=== PATIENT | male | born 1975 | race Hispanic/Latino ===

== ENCOUNTER 2020-08-01 22:16 | Emergency (ER) | payer SELFPAY ==
[2020-08-01] MEDS ORDERED: ACETAMINOPHEN EXTRA STRENGTH 500 MG TABLET ONE (22:42)
== END 2020-08-02 00:24 | disposition home or self-care (01) ==
LOC: EDH 22:16
DX: U07.1 COVID-19 (principal)
CPT/HCPCS: 71045; 87426

== ENCOUNTER → 2022-11-05 | Outpatient (CLI) | payer OTHER, SELFPAY ==
[~2022-11-05] MED LIST: ACYC400T20 PO; LEVO-70 PO; LISI10TA24 PO; METO50TA18 PO; METO5TAB2 PO; METR-172 PO; PANT40TA55 PO
[2022-11-05 16:04] LABS: EOSINOPHILS % (AUTO) 2.1 % (0.0-8.0); HEMATOCRIT 36.3 % (42-54); LYMPHOCYTES % (AUTO) 23.1 % (21.0-51.0); MEAN CORPUSCULAR HEMOGLOBIN 29.5 pg (27.0-33.0); MEAN CORPUSCULAR HGB CONC 31.1 g/dL (32.0-36.0); MEAN CORPUSCULAR VOLUME 94.8 fL (79-99); MONOCYTES % (AUTO) 8.1 % (3.0-13.0); NEUTROPHILS % (AUTO) 55.6 % (40.0-77.0); RED BLOOD CELL COUNT(AUTO) 3.83 MIL/uL (4.50-6.20); RED CELL DISTRIBUTION WIDTH 14.4 % (11.0-15.5); WHITE BLOOD COUNT (AUTO) 10.9 K/uL (4.8-10.8)
[2022-11-05 16:05] LABS: PLATELET COUNT (AUTO) 730 K/uL (130-400)
[2022-11-05 16:20] LABS: CREATININE 0.9 mg/dL (0.5-1.5); POTASSIUM 4.7 mmol/L (3.5-5.1); TOTAL PROTEIN, SERUM 7.9 g/dL (6.0-8.3)
== END | disposition home or self-care (01) ==
LOC: LAB 14:59
PROVIDERS: ATTEND Internal Medicine
DX: K85.91 Acute pancreatitis with uninfected necrosis, unspecified (principal)
CPT/HCPCS: 36415; 80053; 85025

== ENCOUNTER 2022-11-12 08:23 | Inpatient (IN) | payer OTHER, SELFPAY ==
[~2022-11-12] VITALS: Ht 170.2 cm; Wt 62.2 kg
[2022-11-12 09:11] LABS: BASOPHILS % (AUTO) 0.8 % (0.0-5.0); EOSINOPHILS % (AUTO) 1.4 % (0.0-8.0); HEMATOCRIT 35.7 % (42-54); LYMPHOCYTES % (AUTO) 21.1 % (21.0-51.0); MEAN CORPUSCULAR HEMOGLOBIN 30.1 pg (27.0-33.0); MEAN CORPUSCULAR HGB CONC 31.7 g/dL (32.0-36.0); MEAN CORPUSCULAR VOLUME 94.9 fL (79-99); MONOCYTES % (AUTO) 7.8 % (3.0-13.0); NEUTROPHILS % (AUTO) 66.5 % (40.0-77.0); PLATELET COUNT (AUTO) 397 K/uL (130-400); RED BLOOD CELL COUNT(AUTO) 3.76 MIL/uL (4.50-6.20); RED CELL DISTRIBUTION WIDTH 14.9 % (11.0-15.5); WHITE BLOOD COUNT (AUTO) 9.3 K/uL (4.8-10.8)
[2022-11-12 09:20] LABS: APPEARANCE,URINE CLEAR (CLEAR); BILIRUBIN,URINE NEGATIVE (NEGATIVE); COLOR,URINE YELLOW (YELLOW); GLUCOSE, URINE (UA) NEGATIVE (NEGATIVE); KETONES,URINE 5 mg/dL (NEGATIVE); LEUKOCYTE ESTERASE ,URINE 25 Leu/uL (NEGATIVE); NITRATE,URINE NEGATIVE (NEGATIVE); OCCULT BLOOD,URINE NEGATIVE (NEGATIVE); PROTEIN,URINE NEGATIVE (NEGATIVE); UROBILINOGEN,URINE 0.2 mg/dL (0.2-1.0)
[2022-11-12 09:21] LABS: CREATININE 0.8 mg/dL (0.5-1.5); POTASSIUM 4.2 mmol/L (3.5-5.1)
[2022-11-12 09:25] LABS: ALBUMIN 3.1 g/dL (3.5-5.0); TOTAL PROTEIN, SERUM 7.4 g/dL (6.0-8.3)
[2022-11-12 09:51] LABS: MUCUS,URINE RARE LPF (None Seen); RBC,URINE 0-1 /HPF (0-1)
[2022-11-12] MEDS ORDERED: IOHEXOL 350 MG/ML 100ML INFUS..BTL IV ONE (10:54)
[2022-11-12] MEDS ORDERED: ONDANSETRON 4MG INJ IV PRN (15:00)
[2022-11-12] MEDS ORDERED: CEFTRIAXONE 1G VIAL 1 GM in 0.9%NACL 50ML 50 ML IV SCH (15:00)
[2022-11-12] MEDS: CEFTRIAXONE 1G VIAL IVPB SCH (15:49)
[2022-11-12] MEDS: 0.9%NACL 1000ML 1,000 ML IV SCH (15:50)
[2022-11-12 18:58] VITALS: BP 128/92
[2022-11-12 19:50] VITALS: BP 121/88
[2022-11-12] MEDS: FAMOTIDINE 20MG VIAL IV SCH (21:17)
[2022-11-12] MEDS: KETOROLAC 15MG/ML VIAL (15MG/ML) IV PRN (21:20)
[2022-11-12 23:30] VITALS: BP 124/82
[2022-11-13] VITALS (23 sets, daily range): BP systolic 114–158; BP diastolic 78–105
[2022-11-13 05:02] LABS: MEAN CORPUSCULAR HEMOGLOBIN 30.1 pg (27.0-33.0); MEAN CORPUSCULAR HGB CONC 32.2 g/dL (32.0-36.0); MEAN CORPUSCULAR VOLUME 93.6 fL (79-99); RED BLOOD CELL COUNT(AUTO) 3.42 MIL/uL (4.50-6.20); RED CELL DISTRIBUTION WIDTH 14.9 % (11.0-15.5); WHITE BLOOD COUNT (AUTO) 8.2 K/uL (4.8-10.8)
[2022-11-13 05:14] LABS: INR 0.95 (0.85-1.15); PROTHROMBIN TIME 11.1 SEC (9.6-11.6)
[2022-11-13 05:15] LABS: PARTIAL THROMBOPLASTIN TIME 32.9 SEC (26.3-35.5)
[2022-11-13 05:23] LABS: ALBUMIN 2.6 g/dL (3.5-5.0); CREATININE 0.9 mg/dL (0.5-1.5); POTASSIUM 4.3 mmol/L (3.5-5.1); TOTAL PROTEIN, SERUM 6.3 g/dL (6.0-8.3)
[2022-11-13] MEDS ORDERED: LIDOCAINE PF 100MG/5ML (2%) SYRINGE 5ML ONE (07:40)
[2022-11-13] MEDS ORDERED: PROPOFOL 10 MG/ML 20ML VIAL IV ONE ×2 (07:40→07:47)
[2022-11-13] MEDS: 0.9%NACL 1000ML 1,000 ML IV SCH ×2 (08:51→17:40)
[2022-11-13] MEDS: FAMOTIDINE 20MG VIAL IV SCH ×2 (08:52→20:34)
[2022-11-13] MEDS: CEFTRIAXONE 1G VIAL IVPB SCH (16:45)
[2022-11-13] MEDS ORDERED: DICY-20 PO (17:08)
[2022-11-13] MEDS ORDERED: ONDA4TAB10 PO (17:08)
[2022-11-13] MEDS ORDERED: LISI20TA24 PO (17:08)
[2022-11-13] MEDS: KETOROLAC 15MG/ML VIAL (15MG/ML) IV PRN (19:01)
[2022-11-13] MEDS: METOPROLOL TARTRATE 50 MG TAB PO SCH (20:33)
[2022-11-13] MEDS: DICYCLOMINE HCL 20 MG TAB PO SCH (20:34)
[2022-11-13] MEDS ORDERED: LISINOPRIL 20 MG TABLET PO SCH (21:00)
[2022-11-13] MEDS ORDERED: NON-FORMULARY MEDICATION 1 EACH (Dicyclomine HCl 10 MG) PO SCH (21:00)
[2022-11-14 03:35] VITALS: BP 135/93
[2022-11-14 08:00] VITALS: BP 130/98
[2022-11-14] MEDS: METOPROLOL TARTRATE 50 MG TAB PO SCH (09:12)
[2022-11-14] MEDS: FAMOTIDINE 20MG VIAL IV SCH (09:12)
[2022-11-14] MEDS: DICYCLOMINE HCL 20 MG TAB PO SCH (09:12)
[2022-11-14 11:33] VITALS: BP 127/93
== END 2022-11-14 14:25 | disposition home or self-care (01) | DRG 690 ==
LOC: EDH 08:23 → EDHIP 08:24 → 4BH 18:50
PROVIDERS: ADMIT Hospitalist; ATTEND Hospitalist
PROC: 0DC78ZZ Extirpation of Matter from Stomach, Pylorus, Via Natural or Artificial Opening Endoscopic (ICD-10-PCS; principal; 2022-11-13)
DX: N39.0 Urinary tract infection, site not specified (principal); E11.9 Type 2 diabetes mellitus without complications; K21.9 Gastro-esophageal reflux disease without esophagitis; Z20.822 Contact with and (suspected) exposure to COVID-19; I10 Essential (primary) hypertension; Z82.49 Family history of ischemic heart disease and other diseases of the circulatory system; Z83.3 Family history of diabetes mellitus
CPT/HCPCS: 36415; 43247; 71045; 74177; 80053; 81001; 83690; 84484; 85025; 85027; 85610; 85730; 87635; 93005; A4606; G0378; J0696; J1885; J2001; J2704; J3490; J7030; Q9967

== ENCOUNTER 2022-11-30 23:21 | Emergency (ER) | payer OTHER ==
[~2022-11-30] VITALS: Ht 162.6 cm; Wt 64.5 kg
[~2022-11-30 23:21] MED LIST changes: -ACYC400T20 PO; +DICY-20 PO; -LEVO-70 PO; -LISI10TA24 PO; +LISI20TA24 PO; -METO5TAB2 PO; -METR-172 PO; +ONDA4TAB10 PO
[2022-11-30 23:53] LABS: BASOPHILS % (AUTO) 0.5 % (0.0-5.0); EOSINOPHILS % (AUTO) 1.3 % (0.0-8.0); HEMATOCRIT 37.2 % (42-54); MEAN CORPUSCULAR HEMOGLOBIN 30.4 pg (27.0-33.0); MEAN CORPUSCULAR HGB CONC 32.5 g/dL (32.0-36.0); MEAN CORPUSCULAR VOLUME 93.5 fL (79-99); MONOCYTES % (AUTO) 7.8 % (3.0-13.0); NEUTROPHILS % (AUTO) 70.5 % (40.0-77.0); PLATELET COUNT (AUTO) 361 K/uL (130-400); RED BLOOD CELL COUNT(AUTO) 3.98 MIL/uL (4.50-6.20); RED CELL DISTRIBUTION WIDTH 14.8 % (11.0-15.5); WHITE BLOOD COUNT (AUTO) 11.2 K/uL (4.8-10.8)
[2022-12-01] MEDS ORDERED: HALOPERIDOL INJ 5 MG/ML VIAL IV SCH
[2022-12-01 00:02] LABS: CREATININE 1.2 mg/dL (0.5-1.5); POTASSIUM 3.6 mmol/L (3.5-5.1)
[2022-12-01] MEDS ORDERED: LISI10TA24 PO ×2 (00:08→21:19)
[2022-12-01 00:13] LABS: ALBUMIN 3.4 g/dL (3.5-5.0); TOTAL PROTEIN, SERUM 7.5 g/dL (6.0-8.3)
[2022-12-01] MEDS ORDERED: KETOROLAC 30MG VIAL (30MG/ML) IV ONE (01:30)
[2022-12-01] MEDS ORDERED: IBUP-1493 PO (01:41)
[2022-12-01 01:51] LABS: APPEARANCE,URINE CLOUDY (CLEAR); BILIRUBIN,URINE NEGATIVE (NEGATIVE); COLOR,URINE YELLOW (YELLOW); GLUCOSE, URINE (UA) NEGATIVE (NEGATIVE); KETONES,URINE NEGATIVE (NEGATIVE); LEUKOCYTE ESTERASE ,URINE NEGATIVE Leu/uL (NEGATIVE); NITRATE,URINE NEGATIVE (NEGATIVE); OCCULT BLOOD,URINE NEGATIVE (NEGATIVE); PROTEIN,URINE 20 mg/dL (NEGATIVE); UROBILINOGEN,URINE 0.2 mg/dL (0.2-1.0)
[2022-12-01 01:53] LABS: MUCUS,URINE MANY LPF (None Seen); SQUAMOUS EPITHELIAL CELL,UR RARE /HPF (0-2)
[2022-12-01 02:32] VITALS: BP 162/74; PULSE 78; RESP 16; O2SAT 98
[2022-12-01] MEDS ORDERED: DICY20TA3 PO (21:19)
[2022-12-01] MEDS ORDERED: IBUP-2077 PO (21:19)
[2022-12-01] MEDS ORDERED: ONDA4TAB10 PO (21:19)
[2022-12-01] MEDS ORDERED: METO50TA18 PO (21:19)
== END 2022-12-01 02:39 | disposition home or self-care (01) ==
LOC: EDH 23:21
DX: K80.20 Calculus of gallbladder without cholecystitis without obstruction (principal); I10 Essential (primary) hypertension; E11.9 Type 2 diabetes mellitus without complications; K21.9 Gastro-esophageal reflux disease without esophagitis
CPT/HCPCS: 99285; 96374; 76705; 71045; 82550; 83874; 84484; 80053; 83690; 85025; 83605; 81001; 36415; 93005; 96375; J1630; J1885

== ENCOUNTER 2022-12-01 15:57 | Inpatient (IN) | payer OTHER ==
[~2022-12-01] VITALS: Ht 152.4 cm; Wt 65.3 kg
[~2022-12-01 15:57] MED LIST changes: +IBUP-1493 PO; +LISI10TA24 PO
[2022-12-01 20:01] LABS: BASOPHILS # (AUTO) 0.04 K/uL (0.00-0.20); BASOPHILS % (AUTO) 0.3 % (0.0-5.0); EOSINOPHILS # (AUTO) 0.03 K/uL (0.00-0.70); EOSINOPHILS % (AUTO) 0.2 % (0.0-8.0); HEMATOCRIT 37.5 % (42-54); IMMATURE GRANULOCYTE ABSOLUTE 0.11 K/uL (0-1); LYMPHOCYTES # (AUTO) 1.1 K/uL (1.0-4.8); LYMPHOCYTES % (AUTO) 8.1 % (21.0-51.0); MEAN CORPUSCULAR HEMOGLOBIN 30.2 pg (27.0-33.0); MEAN CORPUSCULAR HGB CONC 33.1 g/dL (32.0-36.0); MEAN CORPUSCULAR VOLUME 91.2 fL (79-99); MONOCYTES # (AUTO) 1.1 K/uL (0.1-1.0); NEUTROPHILS # (AUTO) 11.4 K/uL (1.8-7.7); NEUTROPHILS % (AUTO) 82.6 % (40.0-77.0); PLATELET COUNT (AUTO) 321 K/uL (130-400); RED BLOOD CELL COUNT(AUTO) 4.11 MIL/uL (4.50-6.20); RED CELL DISTRIBUTION WIDTH 14.5 % (11.0-15.5); WHITE BLOOD COUNT (AUTO) 13.8 K/uL (4.8-10.8)
[2022-12-01 20:12] LABS: CREATININE 0.8 mg/dL (0.5-1.5); POTASSIUM 3.7 mmol/L (3.5-5.1)
[2022-12-01 20:15] LABS: ALBUMIN 3.1 g/dL (3.5-5.0); TOTAL PROTEIN, SERUM 7.2 g/dL (6.0-8.3)
[2022-12-01 20:43] LABS: APPEARANCE,URINE CLEAR (CLEAR); BILIRUBIN,URINE NEGATIVE (NEGATIVE); COLOR,URINE LIGHT-YELLOW (YELLOW); GLUCOSE, URINE (UA) NEGATIVE (NEGATIVE); KETONES,URINE NEGATIVE (NEGATIVE); LEUKOCYTE ESTERASE ,URINE NEGATIVE Leu/uL (NEGATIVE); NITRATE,URINE NEGATIVE (NEGATIVE); OCCULT BLOOD,URINE NEGATIVE (NEGATIVE); PROTEIN,URINE NEGATIVE (NEGATIVE); UROBILINOGEN,URINE 0.2 mg/dL (0.2-1.0)
[2022-12-01 20:44] LABS: ADD UA MICROSCOPIC YES
[2022-12-01 20:48] LABS: BACTERIA,URINE RARE /HPF (None Seen); MUCUS,URINE RARE LPF (None Seen); WBC,URINE 0-1 /HPF (0-1)
[2022-12-01] MEDS ORDERED: METO50TA18 PO (21:19)
[2022-12-01] MEDS ORDERED: ONDA4TAB10 PO (21:19)
[2022-12-01] MEDS ORDERED: LISI10TA24 PO (21:19)
[2022-12-01] MEDS ORDERED: DICY20TA3 PO (21:19)
[2022-12-01] MEDS ORDERED: IBUP-2077 PO (21:19)
[2022-12-01] MEDS ORDERED: ONDANSETRON 4MG INJ IV PRN (21:30)
[2022-12-01] MEDS ORDERED: 0.9%NACL 50ML IV SCH (21:30)
[2022-12-01] MEDS ORDERED: MORPHINE 4 MG SYG IV PRN (21:30)
[2022-12-01] MEDS ORDERED: ZOSYN 3.375GM +NS 50ML IVPB SCH (21:30)
[2022-12-01] MEDS ORDERED: ZOSYN 3.375GM+NS 50ML 50 ML IVPB ONE (21:43)
[2022-12-01] MEDS: LACTATED RINGERS 1000ML 1,000 ML IV SCH (21:56)
[2022-12-01] MEDS ORDERED: LABETALOL 20MG VIAL IV ONE (22:00)
[2022-12-01 23:16] LABS: SARS-CoV-2, RNA, NAAT NEGATIVE SARS CoV-2 (NEGATIVE)
[2022-12-02] VITALS (9 sets, daily range): BP systolic 127–146; BP diastolic 94–104; PULSE 91–137; RESP 18–20; TEMP 98.5; O2SAT 98
[2022-12-02] MEDS: LABETALOL 20MG SYG IV PRN (04:32)
[2022-12-02] MEDS: ACETAMINOPHEN 325 MG TAB PO PRN ×3 (04:35→20:54)
[2022-12-02] MEDS: ZOSYN 3.375GM+NS 50ML 50 ML IVPB SCH ×3 (04:40→20:49)
[2022-12-02 05:50] LABS: BASOPHILS # (AUTO) 0.04 K/uL (0.00-0.20); BASOPHILS % (AUTO) 0.4 % (0.0-5.0); EOSINOPHILS # (AUTO) 0.05 K/uL (0.00-0.70); EOSINOPHILS % (AUTO) 0.4 % (0.0-8.0); HEMATOCRIT 36.6 % (42-54); LYMPHOCYTES # (AUTO) 0.7 K/uL (1.0-4.8); LYMPHOCYTES % (AUTO) 6.1 % (21.0-51.0); MEAN CORPUSCULAR HEMOGLOBIN 30.3 pg (27.0-33.0); MEAN CORPUSCULAR HGB CONC 33.1 g/dL (32.0-36.0); MEAN CORPUSCULAR VOLUME 91.7 fL (79-99); MONOCYTES # (AUTO) 0.8 K/uL (0.1-1.0); MONOCYTES % (AUTO) 6.7 % (3.0-13.0); NEUTROPHILS # (AUTO) 9.8 K/uL (1.8-7.7); NEUTROPHILS % (AUTO) 85.5 % (40.0-77.0); PLATELET COUNT (AUTO) 319 K/uL (130-400); RED BLOOD CELL COUNT(AUTO) 3.99 MIL/uL (4.50-6.20); RED CELL DISTRIBUTION WIDTH 14.5 % (11.0-15.5); WHITE BLOOD COUNT (AUTO) 11.4 K/uL (4.8-10.8)
[2022-12-02 06:02] LABS: INR 1.03 (0.85-1.15); PROTHROMBIN TIME 11.9 SEC (9.6-11.6)
[2022-12-02 06:03] LABS: PARTIAL THROMBOPLASTIN TIME 33.7 SEC (26.3-35.5)
[2022-12-02 06:23] LABS: CREATININE 0.9 mg/dL (0.5-1.5); MAGNESIUM 1.4 mg/dL (1.80-2.40); PHOSPHORUS 3.6 mg/dL (2.5-4.9); POTASSIUM 3.8 mmol/L (3.5-5.1)
[2022-12-02] MEDS: FAMOTIDINE 20MG VIAL IV SCH ×2 (08:46→20:49)
[2022-12-02] MEDS: LACTATED RINGERS 1000ML 1,000 ML IV SCH (10:50)
[2022-12-02] MEDS ORDERED: IBUPROFEN 600 MG TABLET PO ONE (11:30)
[2022-12-02] MEDS ORDERED: MAGNESIUM 2GM PREMIX 50ML 50 ML IV PRN (13:00)
[2022-12-02] MEDS ORDERED: POTASSIUM CHLORIDE 20MEQ/100ML 100 ML IV PRN (13:00)
[2022-12-02 14:02] LABS: CRP QUANTITATIVE 151.8 mg/L (0.00-9.0)
[2022-12-03] VITALS (7 sets, daily range): BP systolic 125–162; BP diastolic 6–100; PULSE 57–129; RESP 17–20; O2SAT 96–100
[2022-12-03] MEDS: ZOSYN 3.375GM+NS 50ML 50 ML IVPB SCH ×3 (04:46→20:01)
[2022-12-03] MEDS: LACTATED RINGERS 1000ML 1,000 ML IV SCH ×2 (04:47→13:30)
[2022-12-03 05:18] LABS: BASOPHILS # (AUTO) 0.04 K/uL (0.00-0.20); BASOPHILS % (AUTO) 0.3 % (0.0-5.0); EOSINOPHILS # (AUTO) 0.05 K/uL (0.00-0.70); EOSINOPHILS % (AUTO) 0.4 % (0.0-8.0); HEMATOCRIT 38.8 % (42-54); IMMATURE GRANULOCYTE ABSOLUTE 0.12 K/uL (0-1); LYMPHOCYTES # (AUTO) 0.8 K/uL (1.0-4.8); LYMPHOCYTES % (AUTO) 6.8 % (21.0-51.0); MEAN CORPUSCULAR HEMOGLOBIN 30.2 pg (27.0-33.0); MEAN CORPUSCULAR HGB CONC 32.7 g/dL (32.0-36.0); MEAN CORPUSCULAR VOLUME 92.4 fL (79-99); MONOCYTES # (AUTO) 0.7 K/uL (0.1-1.0); NEUTROPHILS # (AUTO) 10.1 K/uL (1.8-7.7); NEUTROPHILS % (AUTO) 85.5 % (40.0-77.0); PLATELET COUNT (AUTO) 281 K/uL (130-400); RED CELL DISTRIBUTION WIDTH 14.6 % (11.0-15.5); WHITE BLOOD COUNT (AUTO) 11.8 K/uL (4.8-10.8)
[2022-12-03 06:05] LABS: ALBUMIN 2.8 g/dL (3.5-5.0); BILIRUBIN,TOTAL 1.3 mg/dL (0.2-1.0); MAGNESIUM 1.6 mg/dL (1.80-2.40); POTASSIUM 3.8 mmol/L (3.5-5.1); TOTAL PROTEIN, SERUM 7.4 g/dL (6.0-8.3)
[2022-12-03] MEDS: FAMOTIDINE 20MG VIAL IV SCH ×2 (08:50→20:01)
[2022-12-03] MEDS: LABETALOL 20MG SYG IV PRN (08:59)
[2022-12-03] MEDS: ACETAMINOPHEN 325 MG TAB PO PRN (10:59)
[2022-12-03] MEDS ORDERED: METOPROLOL TARTRATE 25 MG TAB PO ONE (18:00)
[2022-12-04] VITALS (29 sets, daily range): BP systolic 116–165; BP diastolic 74–123; PULSE 84–106; RESP 13–20; O2SAT 97
[2022-12-04 05:07] LABS: BASOPHILS # (AUTO) 0.04 K/uL (0.00-0.20); BASOPHILS % (AUTO) 0.6 % (0.0-5.0); EOSINOPHILS % (AUTO) 4.4 % (0.0-8.0); HEMATOCRIT 35.4 % (42-54); IMMATURE GRANULOCYTE ABSOLUTE 0.07 K/uL (0-1); LYMPHOCYTES # (AUTO) 1.4 K/uL (1.0-4.8); LYMPHOCYTES % (AUTO) 20.2 % (21.0-51.0); MEAN CORPUSCULAR HEMOGLOBIN 30.3 pg (27.0-33.0); MEAN CORPUSCULAR HGB CONC 33.1 g/dL (32.0-36.0); MEAN CORPUSCULAR VOLUME 91.7 fL (79-99); MONOCYTES % (AUTO) 14.5 % (3.0-13.0); NEUTROPHILS # (AUTO) 4.1 K/uL (1.8-7.7); NEUTROPHILS % (AUTO) 59.3 % (40.0-77.0); PLATELET COUNT (AUTO) 283 K/uL (130-400); RED BLOOD CELL COUNT(AUTO) 3.86 MIL/uL (4.50-6.20); RED CELL DISTRIBUTION WIDTH 14.4 % (11.0-15.5); WHITE BLOOD COUNT (AUTO) 6.9 K/uL (4.8-10.8)
[2022-12-04] MEDS: ZOSYN 3.375GM+NS 50ML 50 ML IVPB SCH ×3 (05:08→20:33)
[2022-12-04] MEDS: LACTATED RINGERS 1000ML 1,000 ML IV SCH ×3 (05:09→20:34)
[2022-12-04 05:22] LABS: ALBUMIN 2.5 g/dL (3.5-5.0); BILIRUBIN,TOTAL 0.4 mg/dL (0.2-1.0); CREATININE 1.1 mg/dL (0.5-1.5); POTASSIUM 3.5 mmol/L (3.5-5.1); TOTAL PROTEIN, SERUM 6.7 g/dL (6.0-8.3)
[2022-12-04] MEDS ORDERED: HYDRALAZINE 20MG/ML VIAL IV ONE (09:00)
[2022-12-04] MEDS: FAMOTIDINE 20MG VIAL IV SCH ×2 (09:05→20:34)
[2022-12-04] MEDS ORDERED: SUCCINYLCHOLINE CHLORIDE 20 MG/ML 10 ML VIAL ONE (09:55)
[2022-12-04] MEDS ORDERED: LIDOCAINE PF 100MG/5ML (2%) SYRINGE 5ML ONE (09:55)
[2022-12-04] MEDS ORDERED: FENTANYL CITRATE PF 50 MCG/1 ML 2ML VIAL ONE ×3 (09:56→11:26)
[2022-12-04] MEDS ORDERED: MIDAZOLAM HCL 1 MG/ML 2ML VIAL ONE (09:56)
[2022-12-04] MEDS ORDERED: PROPOFOL 10 MG/ML 20ML VIAL IV ONE (09:56)
[2022-12-04] MEDS ORDERED: ROCURONIUM 10MG/1ML SYR 10 MG/ML ML ONE (09:56)
[2022-12-04] MEDS ORDERED: LIDOCAINE HCL 1% 10 ML VIAL ONE (10:32)
[2022-12-04] MEDS ORDERED: BUPIVACAINE/PF 0.25% 30ML VIAL IJ ONE (10:32)
[2022-12-04] MEDS ORDERED: ONDANSETRON 4MG INJ ONE (11:40)
[2022-12-04] MEDS ORDERED: KETOROLAC 30MG VIAL (30MG/ML) ONE (11:40)
[2022-12-04] MEDS ORDERED: SUGAMMADEX SODIUM 200 MG/2 ML VIAL IV ONE (11:41)
[2022-12-04] MEDS ORDERED: LABETALOL 20MG SYG IV ONE (12:23)
[2022-12-04] MEDS: LABETALOL 20MG SYG IV PRN (15:05)
[2022-12-04] MEDS ORDERED: HYDRALAZINE 20MG/ML VIAL IM ONE (16:30)
[2022-12-04] MEDS: MORPHINE 2 MG SYG IV PRN (16:31)
[2022-12-04] MEDS: METOPROLOL TARTRATE 50 MG TAB PO SCH (20:34)
[2022-12-05] VITALS: BP 143/94; PULSE 76; RESP 18
[2022-12-05] MEDS: MORPHINE 2 MG SYG IV PRN ×2 (01:13→11:18)
[2022-12-05 04:00] VITALS: BP 144/96; PULSE 80; RESP 19
[2022-12-05 04:52] LABS: BASOPHILS # (AUTO) 0.02 K/uL (0.00-0.20); BASOPHILS % (AUTO) 0.2 % (0.0-5.0); EOSINOPHILS # (AUTO) 0.02 K/uL (0.00-0.70); EOSINOPHILS % (AUTO) 0.2 % (0.0-8.0); HEMATOCRIT 36.9 % (42-54); IMMATURE GRANULOCYTE ABSOLUTE 0.09 K/uL (0-1); LYMPHOCYTES % (AUTO) 11.4 % (21.0-51.0); MEAN CORPUSCULAR HEMOGLOBIN 30.1 pg (27.0-33.0); MEAN CORPUSCULAR HGB CONC 33.1 g/dL (32.0-36.0); MEAN CORPUSCULAR VOLUME 91.1 fL (79-99); MONOCYTES # (AUTO) 0.9 K/uL (0.1-1.0); MONOCYTES % (AUTO) 9.8 % (3.0-13.0); NEUTROPHILS # (AUTO) 6.9 K/uL (1.8-7.7); NEUTROPHILS % (AUTO) 77.4 % (40.0-77.0); PLATELET COUNT (AUTO) 415 K/uL (130-400); RED BLOOD CELL COUNT(AUTO) 4.05 MIL/uL (4.50-6.20); RED CELL DISTRIBUTION WIDTH 14.6 % (11.0-15.5); WHITE BLOOD COUNT (AUTO) 8.9 K/uL (4.8-10.8)
[2022-12-05] MEDS: ZOSYN 3.375GM+NS 50ML 50 ML IVPB SCH (05:03)
[2022-12-05 05:11] LABS: ALBUMIN 2.8 g/dL (3.5-5.0); BILIRUBIN,DIRECT 0.1 mg/dL (0.0-0.3); BILIRUBIN,TOTAL 0.4 mg/dL (0.2-1.0); CREATININE 0.9 mg/dL (0.5-1.5); POTASSIUM 3.9 mmol/L (3.5-5.1); TOTAL PROTEIN, SERUM 7.2 g/dL (6.0-8.3)
[2022-12-05 08:00] VITALS: BP 148/101; PULSE 85; RESP 18; O2SAT 99
[2022-12-05] MEDS: FAMOTIDINE 20MG VIAL IV SCH (08:08)
[2022-12-05] MEDS: METOPROLOL TARTRATE 50 MG TAB PO SCH (08:08)
[2022-12-05] MEDS ORDERED: LISINOPRIL 10 MG TABLET PO SCH (09:00)
[2022-12-05 11:00] VITALS: PULSE 79; RESP 18
== END 2022-12-05 13:35 | disposition home or self-care (01) | DRG 854 ==
LOC: EDH 15:57 → EDHIP 15:58 → 4CH 12-02 00:48
PROVIDERS: ADMIT Internal Medicine; ATTEND Internal Medicine
PROC: 0FT44ZZ Resection of Gallbladder, Percutaneous Endoscopic Approach (ICD-10-PCS; principal; 2022-12-04 10:41)
DX: A41.9 Sepsis, unspecified organism (principal); E44.1 Mild protein-calorie malnutrition; K80.00 Calculus of gallbladder with acute cholecystitis without obstruction; Z20.822 Contact with and (suspected) exposure to COVID-19; E11.9 Type 2 diabetes mellitus without complications; J44.9 Chronic obstructive pulmonary disease, unspecified; K66.0 Peritoneal adhesions (postprocedural) (postinfection); K21.9 Gastro-esophageal reflux disease without esophagitis; I10 Essential (primary) hypertension; I25.10 Atherosclerotic heart disease of native coronary artery without angina pectoris; Z82.49 Family history of ischemic heart disease and other diseases of the circulatory system; Z83.3 Family history of diabetes mellitus; Z86.73 Personal history of transient ischemic attack (TIA), and cerebral infarction without residual deficits; Z68.28 Body mass index [BMI] 28.0-28.9, adult
CPT/HCPCS: 36415; 76705; 78226; 80048; 80053; 80076; 81001; 82948; 83605; 83690; 83735; 84100; 84145; 85025; 85610; 85730; 86140; 86850; 86900; 86901; 87040; 87635; 93005; A9537; G0378; J0330; J0360; J1885; J2001; J2250; J2270; J2405; J2543; J2704; J3010; J3475; J3480; J3490; J7120; A4223; A4600

== ENCOUNTER → 2022-12-15 | Emergency (ER) | payer OTHER ==
[~2022-12-15] VITALS: Ht 165.1 cm; Wt 65.8 kg
[~2022-12-15] MED LIST changes: -DICY-20 PO; +DICY20TA3 PO; -LISI20TA24 PO
[2022-12-15 19:00] VITALS: BP 112/77; PULSE 70; RESP 16
== END ==
LOC: EDH 18:57
DX: Z48.00 Encounter for change or removal of nonsurgical wound dressing (principal); Z53.21 Procedure and treatment not carried out due to patient leaving prior to being seen by health care provider
CPT/HCPCS: 99281

== ENCOUNTER 2022-12-24 11:10 | Emergency (ER) | payer OTHER ==
[~2022-12-24] VITALS: Ht 165.1 cm; Wt 65.3 kg
[2022-12-24 14:05] VITALS: BP 140/79; PULSE 69; RESP 16; O2SAT 99
== END 2022-12-24 14:22 | disposition home or self-care (01) ==
LOC: EDH 11:10
DX: Z48.02 Encounter for removal of sutures (principal); I10 Essential (primary) hypertension; E11.9 Type 2 diabetes mellitus without complications; K21.9 Gastro-esophageal reflux disease without esophagitis; Z79.899 Other long term (current) drug therapy; Z90.49 Acquired absence of other specified parts of digestive tract
CPT/HCPCS: 99282

== ENCOUNTER 2025-03-08 20:52 | Emergency (ER) | payer BC ==
[~2025-03-08] VITALS: Ht 165.1 cm; Wt 80.3 kg
[~2025-03-08 20:52] MED LIST changes: +ONDA-243 PO; -ONDA4TAB10 PO
[2025-03-08 21:21] LABS: RAPID GROUP A STREP positive (NEGATIVE)
[2025-03-08 21:23] LABS: SARS-CoV-2, RNA, NAAT NEGATIVE SARS CoV-2 (NEGATIVE)
[2025-03-08 21:29] LABS: INFLUENZA TYPE A Negative For Type A (NEGATIVE); INFLUENZA TYPE B Negative For Type B (NEGATIVE)
[2025-03-08] MEDS ORDERED: AMOX1TAB16 PO (21:45)
--- NOTE | 2025-03-08 21:45 | ERN ---
General Chief Complaint: Generalized Body Aches Stated Complaint: C/O BODYACHES,HEADACHE, "COVID SYMPTOMS" Time Seen by MD: 21:02 History of Present Illness Initial Comments 49 y/o male came in for sore throat. Allergies: Coded Allergies: No Known Allergies (Unverified Allergy, Unknown, 08/02/20) Home Meds Active Scripts Ibuprofen (Motrin/Advil) 800 Mg Tab, 800 MG PO TID, #30 TAB Prov:YARON MARKS MD 12/01/22 Pantoprazole Sodium (Protonix) 40 Mg Ectab, 40 MG PO DAILY for 30 Days, #30 TAB.EC 1 Refill Prov:ADEBAYO MORALES Jr., MD 10/27/22 Metoprolol Tartrate (Metoprolol Tartrate) 50 Mg Tablet, 50 MG PO BID for 30 Days, #60 TAB 1 Refill Prov:ADEBAYO MORALES Jr., MD 10/27/22 Reported Medications Lisinopril (Lisinopril) 10 Mg Tablet, 10 MG PO DAILY, TAB 12/01/22 Dicyclomine HCl (Dicyclomine HCl) 20 Mg Tablet, 20 MG PO Q6HPRN PRN for ABDOMINAL PAIN, TAB 12/01/22 Metoprolol Tartrate (Metoprolol Tartrate) 50 Mg Tablet, 50 MG PO BID, TAB 12/01/22 Ondansetron (Ondansetron Odt) 4 Mg Tab.rapdis, 4 MG PO Q6HPRN PRN for NAUSEA/VOMITING, TAB 12/01/22 Past Medical History Past Medical History: Other Medical History Other: HX OF GASTRITIS Past Surgical History: Cholecystectomy Family History Family History: DM, HTN Social History Social History: Negative, Lives with family ROS Dictation Sore throat Physical Exam Physical Exam Dictation Tonsils two plus with exudate Results Laboratory and Microbiology Lab and Micro Result Laboratory Tests Test 03/08/25 21:00 Influenza Type A Antigen Negative For Type A Influenza Type B Antigen Negative For Type B SARS-CoV-2, RNA, NAAT NEGATIVE SARS CoV-2 Group A Streptococcus Rapid positive (NEGATIVE) *A MDM MDM: Differential diagnosis: Rationale: Tests considered and ordered secondary to shared decision making include: Previous outside records reviewed: Old ER visits. Risk of complication and/or morbidity or mortality of patient management: None Medications-Per medication reconciliation Need for hospitalization: Patient does not meet criteria for hospitalization. Need for emergency major/minor surgery: No There are no social concerns with this patient. Prescription drug management Prescriptions will include symptomatic care Patient's prior external medical records from other ER visits were reviewed by me as indicated. Prior testing and results from previous visits were reviewed. Prior tests were taken into account with medical decision making and resource utilization, independent historian/historians were used to obtain complete medical history. I independently interpreted the test that were performed, results were reviewed by me and considered findings on radiology if ordered. Medical management and examination interpretation discussions were had by me with other qualified healthcare professionals as indicated for the patient's care. ED Course Orders Procedure Category Date Status Time Covid Rna Naat LAB 03/08/25 Complete 21:00 Influenza Type A & B, LAB 03/08/25 Complete Rapid 21:00 Rapid (Group A Strep) LAB 03/08/25 Complete 21:00 Ceftriaxone 1g Vial PHA 03/08/25 Logged (Rocephine 1g Inj) 22:00 Current Medications Medications (Trade) Dose Ordered Sig/Win Route PRN Reason Start Time Stop Time Status Last Admin Dose Admin Ceftriaxone Sodium (ROCEphine 1G INJ) 1 gm ONCE ONCE IM 03/08/25 22:00 03/08/25 22:01 UNV Vital Signs Date Time Temp Pulse Resp B/P (MAP) Pulse Ox O2 Delivery O2 Flow Rate FiO2 03/08/25 20:56 100.8 121 20 172/118 98 Room Air DX & DISP Disposition: Discharge Departure Impression: Primary Impression: Pharyngitis Condition: Stable Scripts Amoxicillin/Potassium Clav (Amox Tr-K Clv 875-125 mg Tab) 875 Mg-125 Mg Tablet 1 EACH PO BID for 10 Days, #20 TAB 0 Refills Prov: SIGIFREDO GONZALES MD 03/08/25 Referrals: LISSA POTTS (PCP) SIGIFREDO GONZALES MD Mar 08, 2025 21:45
[2025-03-08 22:35] VITALS: BP 162/98; PULSE 94; RESP 16; TEMP 99.8; O2SAT 100
== END 2025-03-08 22:38 | disposition home or self-care (01) ==
LOC: EDH 20:52
DX: J02.9 Acute pharyngitis, unspecified (principal); Z20.822 Contact with and (suspected) exposure to COVID-19; Z90.49 Acquired absence of other specified parts of digestive tract; Z79.899 Other long term (current) drug therapy; Z79.1 Long term (current) use of non-steroidal anti-inflammatories (NSAID)
CPT/HCPCS: 99284; 87635; 87880; 87804 ×2; 96372; J0696